=== PATIENT | male | born 1990 | race African-American/Black ===

== ENCOUNTER 2016-11-15 08:08 | Emergency (ER) | payer SELFPAY ==
[~2016-11-15] VITALS: Ht 180.3 cm; Wt 81.8 kg
[2016-11-15 08:09] VITALS: TEMP 98.8
[2016-11-15 09:18] VITALS: BP 153/97; PULSE 64
[2016-11-15] MEDS ORDERED: NORCO 325 MG-7.1 TAB PO (09:36)
[2016-11-15] MEDS ORDERED: AMOXICILLIN 50500 MG PO (09:36)
== END 2016-11-15 09:28 | disposition home or self-care (01) ==
LOC: COL.ER 08:08
DX: K08.89 Other specified disorders of teeth and supporting structures (principal); I10 Essential (primary) hypertension; F17.299 Nicotine dependence, other tobacco product, with unspecified nicotine-induced disorders